=== PATIENT | male | born 1995 | race Caucasian/White ===

== ENCOUNTER 2019-08-29 11:31 | Emergency (ER) | payer SELFPAY ==
[~2019-08-29] VITALS: Ht 172.7 cm; Wt 95.3 kg
[2019-08-29 11:56] VITALS: BP 155/122
--- NOTE | 2019-08-29 12:13 | Emergency Room Report ---
History of Present Illness General Chief Complaint: Pain Source: Patient, EMS Present Illness HPI Patient is a 24-year-old male brought in by EMS complaining of bilateral foot pain. Patient is not cooperative with my questioning and is not cooperative with a physical exam either. He is refusing to take his socks off and he is refusing to let me examine him. Allergies: Coded Allergies: No Known Allergies (Unverified , 08/29/19) COVID-19 Screening Contact w/high risk pt: No Recent Travel to affected area: No Experienced COVID-19 symptoms?: No COVID-19 Testing performed [employer]: No Patient History Reviewed Nursing Documentation: PMH: Agreed; PSxH: Agreed Nursing Documentation-PMH Past Medical History: No History, Except For History Of Psychiatric Problem: Yes - depression, anxiety Review of Systems All Other Systems: limited - patient not cooperative Physical Exam Vital Signs Date Time Temp Pulse Resp B/P (MAP) Pulse Ox O2 Delivery O2 Flow Rate FiO2 08/29/19 11:28 98.4 95 18 155/122 (133) 98 Room Air Sp02 EP Interpretation: reviewed, normal General Appearance: normal inspection, other - refusing physical examination Head: normocephalic, atraumatic Eyes: bilateral eye normal inspection, bilateral eye PERRL ENT: hearing grossly normal Neck: full range of motion Respiratory: no respiratory distress, no retraction, speaking full sentences Cardiovascular #1: other - refused Gastrointestinal: other - refused Rectal: deferred Genitourinary: other - refused Musculoskeletal: normal range of motion, other - unable to assess feet, would not take socks off but no obvious swelling or deformity Psychiatric: anxious Skin: no rash Medical Decision Making Diagnostic Impression: Primary Impression: Pain ER Course Patient refused treatment. He was non-cooperative with history or physical exam. Patient eloped. Last Vital Signs Date Time Temp Pulse Resp B/P (MAP) Pulse Ox O2 Delivery O2 Flow Rate FiO2 08/29/19 11:56 98.4 18 155/122 98 Room Air 08/29/19 11:28 95 Disposition: Karla Nelson M.D. August 29, 2019 12:12
== END 2019-08-29 12:15 | disposition left against medical advice (07) ==
LOC: EDBD 11:31 → EMR 12:12
DX: M25.572 Pain in left ankle and joints of left foot (principal); M25.571 Pain in right ankle and joints of right foot; Z53.29 Procedure and treatment not carried out because of patient's decision for other reasons
CPT/HCPCS: 99281